=== PATIENT | male | born 1985 | race Two or more races ===

== ENCOUNTER 2019-10-05 11:47 | Emergency (ER) | payer OTHER ==
[~2019-10-05] VITALS: Ht 172.7 cm; Wt 77.9 kg
[2019-10-05 11:49] VITALS: BP 138/94
[2019-10-05] MEDS ORDERED: DIPH,PERTUSS(ACELL),TET VAC/PF 0.5 ML IM-VACC ONE ×2 (12:11→12:30)
[2019-10-05] MEDS ORDERED: FLUORESCEIN OPHTHALMIC 1 MG STRIP ONE ×2 (12:39→12:40)
== END 2019-10-05 13:09 | disposition home or self-care (01) ==
LOC: ED 12:13
DX: T26.11XA Burn of cornea and conjunctival sac, right eye, initial encounter (principal); T20.16XA Burn of first degree of forehead and cheek, initial encounter; T22.111A Burn of first degree of right forearm, initial encounter; X10.2XXA Contact with fats and cooking oils, initial encounter; Y93.89 Activity, other specified; Y92.89 Other specified places as the place of occurrence of the external cause; Y99.0 Civilian activity done for income or pay
CPT/HCPCS: 90471; 90715; 99283